=== PATIENT | male | born 1965 | race Hispanic/Latino ===

== ENCOUNTER → 2018-05-23 | Outpatient (CLI) | payer BC | END | disposition home or self-care (01) | LOC: RAH 12:30 | PROVIDERS: ATTEND Family Medicine | DX: M19.012 Primary osteoarthritis, left shoulder (principal) | CPT/HCPCS: 73221 ==

== ENCOUNTER → 2019-12-23 | Outpatient (CLI) | payer BC | END | disposition home or self-care (01) | LOC: OIH 11:14 | PROVIDERS: ATTEND Family Medicine | DX: M17.11 Unilateral primary osteoarthritis, right knee (principal); M25.561 Pain in right knee; M89.8X8 Other specified disorders of bone, other site | CPT/HCPCS: 73562 ==

== ENCOUNTER → 2022-03-13 | Outpatient (CLI) | payer BC | END | disposition home or self-care (01) | LOC: RAH 09:02 | PROVIDERS: ATTEND Physical Medicine & Rehabilitation | DX: M54.12 Radiculopathy, cervical region (principal); M48.02 Spinal stenosis, cervical region | CPT/HCPCS: 72141 ==

== ENCOUNTER 2023-03-23 13:00 | Emergency (ER) | payer BC ==
[~2023-03-23] VITALS: Ht 175.3 cm; Wt 103.4 kg
[2023-03-23 15:04] LABS: BASOPHILS # (AUTO) 0.09 K/uL (0.00-0.20); EOSINOPHILS % (AUTO) 7.8 % (0.0-8.0); HEMATOCRIT 47.3 % (42-54); IMMATURE GRANULOCYTE ABSOLUTE 0.09 K/uL (0-1); LYMPHOCYTES # (AUTO) 2.5 K/uL (1.0-4.8); LYMPHOCYTES % (AUTO) 27.7 % (21.0-51.0); MEAN CORPUSCULAR VOLUME 87.9 fL (79-99); MONOCYTES # (AUTO) 0.8 K/uL (0.1-1.0); MONOCYTES % (AUTO) 9.3 % (3.0-13.0); NEUTROPHILS # (AUTO) 4.8 K/uL (1.8-7.7); NEUTROPHILS % (AUTO) 53.2 % (40.0-77.0); PLATELET COUNT (AUTO) 209 K/uL (130-400); RED BLOOD CELL COUNT(AUTO) 5.38 MIL/uL (4.50-6.20); RED CELL DISTRIBUTION WIDTH 13.4 % (11.0-15.5); WHITE BLOOD COUNT (AUTO) 8.9 K/uL (4.8-10.8)
[2023-03-23 15:27] LABS: CREATININE 0.8 mg/dL (0.5-1.5); POTASSIUM 4.2 mmol/L (3.5-5.1)
[2023-03-23 15:36] LABS: BILIRUBIN,TOTAL 0.6 mg/dL (0.2-1.0); MAGNESIUM 2.1 mg/dL (1.80-2.40); THYROID STIMULATING HORMONE 0.75 uIU/mL (0.36-3.74); TOTAL PROTEIN, SERUM 7.6 g/dL (6.0-8.3)
[2023-03-23 22:04] VITALS: BP 138/74; PULSE 60; RESP 16; O2SAT 98
== END 2023-03-23 23:39 | disposition home or self-care (01) ==
LOC: EDH 13:00
DX: G83.14 Monoplegia of lower limb affecting left nondominant side (principal); I10 Essential (primary) hypertension; E78.00 Pure hypercholesterolemia, unspecified
CPT/HCPCS: 36415; 70551; 80053; 83735; 84443; 84484; 85025; 93005

== ENCOUNTER → 2023-05-04 | Outpatient (CLI) | payer OTHER | END | disposition home or self-care (01) | LOC: OIH 12:56 | PROVIDERS: ATTEND Nurse Practitioner Adult Health | DX: Z13.6 Encounter for screening for cardiovascular disorders (principal) | CPT/HCPCS: 75571 ==

== ENCOUNTER → 2023-05-04 | Outpatient (CLI) | payer BC | END | disposition home or self-care (01) | LOC: OIH 13:08 | PROVIDERS: ATTEND Nurse Practitioner Adult Health | DX: M16.12 Unilateral primary osteoarthritis, left hip (principal); M25.562 Pain in left knee; M54.50 Low back pain, unspecified; M25.552 Pain in left hip; M43.17 Spondylolisthesis, lumbosacral region | CPT/HCPCS: 72100; 73502 ==

== ENCOUNTER → 2023-11-23 | Outpatient (CLI) | payer BC | END | disposition home or self-care (01) | LOC: RAH 13:55 | PROVIDERS: ATTEND Physical Medicine & Rehabilitation | DX: M17.0 Bilateral primary osteoarthritis of knee (principal) | CPT/HCPCS: 73560 ==